=== PATIENT | male | born 1980 | race Caucasian/White ===

== ENCOUNTER 2017-01-25 12:09 | Emergency (ER) | payer SELFPAY ==
[~2017-01-25] VITALS: Ht 182.9 cm; Wt 75.0 kg
[2017-01-25 12:21] VITALS: BP 121/74; PULSE 84; RESP 15; TEMP 98.2; O2SAT 98
--- NOTE | 2017-01-25 12:29 | PD ---
Physical Exam Date Seen by Provider: Jan 25, 2017 Time Seen by Provider: 12:28 Narrative 36-year-old male with history of dysuria and exposure to chlamydia. Patient states he was evaluated at another facility and told he did not have any and not treated. He is here now for reevaluation for possible UTI/STD. Pain is 8 out of 10 with urination. He denies fever, chills, or other symptoms. He has no known drug allergies. Data Data Last Documented VS Vital Signs Date Time Temp Pulse Resp B/P (MAP) Pulse Ox O2 Delivery O2 Flow Rate FiO2 01/25/17 12:21 98.2 84 15 121/74 (90) 98 Orders Orders Urinalysis - C+S If Indicated (01/25/17 12:25) Gc And Chlamydia Pcr (01/25/17 12:25) MDM Medical Record Reviewed: Yes Supervised Visit with ANDREW: Yes Narrative Course Patient is medically stable. Urinalysis and urine GC chlamydia ordered. Patient awaiting medical bed placement. Condition: Stable Cuong Perez Jan 25, 2017 12:29
[2017-01-25 13:16] LABS: BLOOD, URINE NEG (NEG); GLUCOSE,URINE NEG (NEG); KETONE, URINE NEG (NEG); NITRITE,URINE NEG (NEG); URINE COLOR YELLOW (YELLW/STRAW)
[2017-01-25 13:20] LABS: COMMENT (UR) CULT NOT INDICATED; CULTURE IF INDICATED CULT NOT INDICATED
--- NOTE | 2017-01-25 14:02 | PD ---
HPI Chief Complaint: Medical Clearance Time Seen by Provider: 14:01 Travel History International Travel<30 days: No Contact w/Intl Traveler<30days: No Traveled to known affect area: No History of Present Illness HPI 36-year-old male arrives because his significant other tested positive for chlamydia. He has dysuria and causing made over 10 burning pain. No fever. No incontinence. No discharge. No testicular pain. Duration one day. PFSH Social History Tobacco Use: No Allergies-Medications (Allergen,Severity, Reaction): Coded Allergies: No Known Allergies (Verified Allergy, Unknown, 01/25/17) Review of Systems General / Constitutional: No: Fever Physical Exam Narrative GENERAL: Well-nourished well-developed 36-year-old male no acute distress Genitourinary: Deferred SKIN: Warm and dry. HEAD: Normocephalic. EYES: No scleral icterus. No injection or drainage. NECK: Supple, trachea midline. No JVD or lymphadenopathy. GASTROINTESTINAL: Abdomen soft, non-tender, nondistended. MUSCULOSKELETAL: No cyanosis, or edema. Data Data Last Documented VS Vital Signs Date Time Temp Pulse Resp B/P (MAP) Pulse Ox O2 Delivery O2 Flow Rate FiO2 01/25/17 12:21 98.2 84 15 121/74 (90) 98 Vital signs reviewed Orders Orders Urinalysis - C+S If Indicated (01/25/17 12:25) Gc And Chlamydia Pcr (01/25/17 12:25) Ceftriaxone Inj (Rocephin Inj) (01/25/17 14:15) Lidocaine 1% Inj (50 Ml) (Xylocaine 1% I (01/25/17 14:15) Ceftriaxone Inj (Rocephin Inj) (01/25/17 14:15) Ed Discharge Order (01/25/17 14:03) Azithromycin Powd Pack (Zithromax Powd P (01/25/17 14:30) Labs Laboratory Tests Test 01/25/17 12:30 Urine Color YELLOW Urine Turbidity CLEAR Urine pH 6.0 Urine Specific [place] 1.018 Urine Protein NEG mg/dL Urine Glucose (UA) NEG mg/dL Urine Ketones NEG mg/dL Urine Occult Blood NEG Urine Nitrite NEG Urine Bilirubin NEG Urine Urobilinogen LESS THAN 2.0 MG/DL Urine Leukocyte Esterase NEG Urine RBC 1 /hpf Urine WBC 3 /hpf Microscopic Urinalysis Comment CULT NOT INDICATED MDM Medical Decision Making Medical Screen Exam Complete: Yes Emergency Medical Condition: Yes Medical Record Reviewed: Yes Differential Diagnosis STD, UTI, urethritis Narrative Course Rocephin and azithromycin Follow-up with [facility] Department Diagnosis Primary Impression: STD exposure Referrals: [facility] Dept. 2 days Additional Instructions: You have a choice when it comes to health care, and we are glad that you chose [facility]. Hopefully, we have met your expectations on today's visit. You are welcome to return to [facility] at any time, as we are committed to meeting the health care needs of our community. Med/Other Pt SpecificInfo: No Change to Meds Disposition: 01 DISCHARGE HOME Condition: Geovani Fan MD Jan 25, 2017 14:02
[2017-01-25] MEDS ORDERED: LIDOCAINE HCL 1% 50 ML VIAL IM ONE (14:15)
[2017-01-25] MEDS ORDERED: cefTRIAXone 250 MG VIAL IM ONE (14:15)
[2017-01-25] MEDS ORDERED: AZITHROMYCIN PWD FOR SUSP 1 GM PACKET PO ONE (14:30)
[2017-01-25 16:02] LABS: CHLAMYDIA PCR DETECTED (NOT DETECT); NEISSERIA PCR NOT DETECTED (NOT DETECT)
== END 2017-01-25 14:39 | disposition home or self-care (01) ==
LOC: NEPD 12:09
DX: Z20.2 Contact with and (suspected) exposure to infections with a predominantly sexual mode of transmission (principal); R30.0 Dysuria
CPT/HCPCS: 81001; 87491; 87591; 96372; 99284; J0696

== ENCOUNTER 2017-03-17 11:07 | Emergency (ER) | payer MEDICAID ==
[~2017-03-17] VITALS: Ht 182.9 cm; Wt 75.0 kg
[2017-03-17 11:09] VITALS: BP 130/87; PULSE 112; RESP 17; TEMP 98.5; O2SAT 99
--- NOTE | 2017-03-17 11:35 | PD ---
HPI Chief Complaint: Cold / Flu Symptoms Time Seen by Provider: 11:23 Travel History International Travel<30 days: No Contact w/Intl Traveler<30days: No Traveled to known affect area: No History of Present Illness HPI 36 y male presents to the ED for 1 episode of nonbloody nonbilious vomiting, congestion, and body aches since this morning. Patient states that his daughter and girlfriend has had similar symptoms and resolved on their own. Patient denies fever, chills, chest pain, cough, shortness of breath, abdominal pain, urinary symptoms, diarrhea. 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 Patient denies chronic medical issues or medication use. [facility] [place] Social History Alcohol Use: No Tobacco Use: No Substance Use: No Allergies-Medications (Allergen,Severity, Reaction): Coded Allergies: No Known Allergies (Verified , 03/17/17) Reported Meds & Prescriptions Reported Meds & Active Scripts Active No Active Prescriptions or Reported Medications Review of Systems Except as stated in HPI: all other systems reviewed are Neg Physical Exam Narrative GENERAL: Well-nourished, well-developed patient. SKIN: Focused skin assessment warm/dry. HEAD: Normocephalic. EYES: No scleral icterus. No injection or drainage. THROAT: No pharyngeal injection, exudates, or tonsillar hypertrophy. Airway is patent. NECK: Supple, trachea midline. No JVD or lymphadenopathy. CARDIOVASCULAR: Regular rate and rhythm without murmurs, gallops, or rubs. RESPIRATORY: Breath sounds equal bilaterally. No accessory muscle use. GASTROINTESTINAL: Abdomen soft, non-tender, nondistended. MUSCULOSKELETAL: No cyanosis, or edema. BACK: Nontender without obvious deformity. No CVA tenderness. Data Data Last Documented VS Vital Signs Date Time Temp Pulse Resp B/P (MAP) Pulse Ox O2 Delivery O2 Flow Rate FiO2 03/17/17 11:49 03/17/17 11:28 18 Room Air 03/17/17 11:09 98.5 112 99 Orders Orders Ed Discharge Order (03/17/17 11:35) MDM Medical Decision Making Medical Screen Exam Complete: Yes Emergency Medical Condition: Yes Differential Diagnosis Influenza, viral syndrome, upper respiratory infection Narrative Course 36 y male presents to the ED for 1 episode of nonbloody nonbilious vomiting, congestion, and body aches since this morning. Patient states that his daughter and girlfriend has had similar symptoms and resolved on their own. Patient denies fever, chills, chest pain, cough, shortness of breath, abdominal pain, urinary symptoms, diarrhea. 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 Patient denies chronic medical issues or medication use. Vital signs stable Physical exam unremarkable I offered patient Zofran for nausea and vomiting and he declined. Advised patient to use Tylenol or Motrin per pressure construction's and sure he drinks plenty of fluids. 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 Advised to follow up with his PCP within 2-3 days, return to the ED for worsening or persistent symptoms. Diagnosis Primary Impression: Viral syndrome Referrals: Primary Care Physician Departure Forms: Tests/Procedures, Work Release Enter return to work date: Mar 20, 2017 Special Instructions: If all symptoms clear, may return tomorrow, March 18. Additional Instructions: May use [id number] Tylenol or Motrin per package instructions for symptom relief. Ensure you drink plenty of fluids to replace what you have lost. Follow up with your primary care physician within 2-3 days. If you symptoms persist or worsen, return to the emergency department. Scripts No Active Prescriptions or Reported Meds Disposition: 01 DISCHARGE HOME Condition: Stable Janet Templeton Mar 17, 2017 11:35
== END 2017-03-17 11:49 | disposition home or self-care (01) ==
LOC: NEPD 11:07
DX: B34.9 Viral infection, unspecified (principal)
CPT/HCPCS: 99282